=== PATIENT | male | born 1935 ===

== ENCOUNTER 2017-09-21 23:27 | Inpatient (IN) | payer MEDICARE, OTHER ==
--- NOTE | 2017-09-21 23:43 | EDPD ---
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 Relative notes patient has had difficulty talking since his stroke in 05/19 but notes tonight patient was mumbling more so tonight. Patient denies any fever, chills, chest pain, shortness of breath, nausea, vomiting, back pain, neck pain, or any other complaints. 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) Timing: Currently Symptomatic Context: Home Exacerbated by: Nothing Relieved by: Nothing - Location Location: Speech Locate Right: Lower extremity rTPA Inclusion/Exclusion - Refusal of Treatment Patient Refused Treatment: No - Inclusion Criteria for Altepase Patient is 18 years or Older: Yes The Clinical Diagnosis of Ischemic Stroke That is Causing a Potentially Disabling Neurological Deficit: No Time of Onset is Well Established to be Less Than 270 Minute Before Treatment Would Begin: Yes Risk/Benefit Discussed With Patient/Family Member Present: Yes - Exclusion Criteria for Altepase Uncontrolled Hypertension at Time of Treatment (Systolic BP above 185 or Diastolic BP above 110 mmHg): No Active Internal Bleeding: No Known Bleeding Diathesis Including but Not Limited to: Platelets Below 100,000/ mm,PTT Above 40 sec After Heparin Use, Current Use of Oral Anitcoagulant With INR Greater Than 1.7 or PT Greater Than 15 secs: No Evidence of an Intracranial Hemorrhage: No Evidence of Major Acute Infarct With Signs Greater Than 1/3 MCA Territory: No Suspicion of Subarachnoid Hemorrhage on Pretreatment Evaluation Even if CT Head Negative For Hemorrhage: No - Warning to TPA With Conditions Following Conditions Weighed Against Anticipated Benefit: Yes Condition: Stroke Serevity Too Mild Past Medical History - Provider Review Nursing Documentation Reviewed: Yes Family/Social History - Family/Social History Family History: Non-Contributory - Review Nursing documentation reviewed.: Yes Allergies/Home Meds Allergies/Adverse Reactions: Allergies No Known Allergies Allergy (Verified 09/21/17 23:43) Home Medications: Home Meds Medication Instructions Recorded Confirmed Unobtainable 09/22/17 09/22/17 Review of Systems - Physician Review All systems were reviewed & negative as marked: Yes - Review of Systems Constitutional: Normal. absent: Fevers Eyes: Normal ENT: Normal Respiratory: Normal. absent: SOB, Cough Cardiovascular: Normal. absent: Chest Pain Gastrointestinal: Normal. absent: Abdominal Pain, Diarrhea, Nausea, Vomiting Genitourinary Male: Normal. absent: Dysuria, Frequency, Hematuria, Urinary Output Changes Musculoskeletal: Normal. absent: Back Pain, Neck Pain Skin: Normal. absent: Rash Neurological: Speech Changes (+aphasic), Other (+shaking). absent: Dizziness Endocrine: Normal Hemo/Lymphatic: Normal Psychiatric: Normal ED Stroke Physical Exam Vital Signs Reviewed: Yes Temperature: Afebrile Blood Pressure: Normal Pulse: Regular Respiratory Rate: Normal Appearance: Positive for: Non-Toxic, Comfortable Pain Distress: None Mental Status: Positive for: Alert and Oriented X 3 - Systems Exam Head: Present: Atraumatic, Normocephalic Pupils: Present: PERRL Extroacular Muscles: Present: EOMI Conjunctiva: Present: Normal Mouth: Present: Moist Mucous Membranes Neck: Present: Normal Range of Motion. No: Meningeal Signs, MIDLINE TENDERNESS , Paraspinal Tenderness Respiratory/Chest: Present: Clear to Auscultation Cardiovascular: Present: Regular Rate and Rhythm, Normal S1, S2. No: Murmurs Abdomen: Present: Normal Bowel Sounds. No: Tenderness, Distention, Peritoneal Signs Upper Extremity: Present: Normal Inspection, Normal ROM, NORMAL PULSES, Neurovascularly Intact. No: Cyanosis, Edema, Tenderness, Swelling, Erythema, Deformity Lower Extremity: Present: NORMAL PULSES, Normal ROM, Capillary Refill < 2 s, Other (Right lower extremity weakness). No: Edema, Tenderness, Erythema, Deformity, Temperature Abnormalties Neurologic: Present: Normal Sensory Function, Other (Right lower extremity weakness). No: Speech Normal (Aphasic), Pronator Drift, Facial Droop Skin: Present: Warm, Dry, Normal Color. No: Rashes Psychiatric: Present: Alert Medical Decision Making ED Course and Treatment: 09/21/17 23:42 Impression: 82 year old male brought in for shaking and aphasia tonight. Plan: -- CT Head w/o contrast -- EKG -- CXR -- Labs, lipid panel, troponin, blood type and screen -- Reassess and disposition Progress Notes: 09/21/17 23:42 Code Stroke called. Pt taken CT scan. 09/21/17 23:46 Reviewed EKG, junctional rhythm at 64 bpm. Non-specific ST/T wave changes. 09/21/17 23:[address] Sue, neurologist, who is aware and agrees with plan. States to cancel Code Stroke. 09/22/17 00:16 CT Head shows: Brain: There is abnormal hypodensity within the left cerebral peduncle, which is asymmetric and extends into the alfredo. This is concerning for acute or subacute ischemic change/ infarct. Hypodense foci of small vessel skin disease and lacunar infarcts are visualized within the left cerebral white matter. These lacunar infarcts appear chronic. The acuity of the white matter disease is otherwise indeterminate. There is an asymmetric increase in fluid posterior to the cerebellar lobes, left side greater than right. This is consistent with a shannan-cisterna magna variant or arachnoid cyst. The white-uriarte differentiation is otherwise preserved. There is mild to moderate prominence of the ventricles and sulci, compatible with atrophy. No acute intracranial hemorrhage is seen. Midline shift: There is no midline shift. Ventricles: See above. Bones/joints: The calvarium demonstrates no evidence for a depressed fracture. Soft tissues: No acute abnormality. Vasculature: There is atherosclerotic calcification of the cavernous internal carotid arteries and distal vertebral arteries. Sinuses: There is mild mucosal thickening of the bilateral maxillary sinuses. Mastoid air cells: No mastoid effusion. IMPRESSION: 1. There is abnormal hypodensity within the left cerebral peduncle, which is asymmetric and extends into the alfredo. This is concerning for acute or subacute ischemic change/ infarct. An MRI of the brain is recommended, as clinically indicated. 2. Hypodense foci of small vessel skin disease and lacunar infarcts are visualized within the left cerebral white matter. These lacunar infarcts appear chronic. 3. No acute intracranial hemorrhage. 4. Mild to moderate atrophy. 6. Incidental/non-acute findings are described above. 09/22/17 00:25 Chest X-ray reviewed, show no acute processes. 09/22/17 02:35 Case discussed with medical biller/coder claims consultant, who is aware and agrees with plan. 09/22/17 02:[address] Irving, who is aware and agrees with plan. Accepts pt in to hospitalist service. Pt will be admitted to Telemetry for hyponatremia. - Lab Interpretations I have reviewed the lab results: Yes - RAD Interpretation Panel Assembler: ED Physician, Radiologist - EKG Interpretation Interpreted by ED Physician: Yes Type: 12 lead EKG - Scribe Statement The provider has reviewed the documentation as recorded by the Scribe Magda Solomon All medical record entries made by the Scribe were at my direction and personally dictated by me. I have reviewed the chart and agree that the record accurately reflects my personal performance of the history, physical exam, medical decision making, and the department course for this patient. I have also personally directed, reviewed, and agree with the discharge instructions and disposition. NIHSS Scale ([place]) Time Performed: 23:45 - How Severe is the Stoke Baseline Level of Consciousness: 0=Alert LOC to Questions: 0=Both comments correct LOC to commands: 0=Obeys both correctly Best Gaze: 0=Normal Visual: 0=No visual loss Facial: 1=Minor asymmetry Motor Arm - Left: 0=No drift Motor Arm - Right: 0=No drift Motor Leg - Left: 0=No drift Motor Leg - Right: 1=Drift before 5 sec Limb Ataxia: 1=Present Upper or Lower Sensory: 0=Normal Best Language: 2=Severe aphasia Dysarthia: 2=Severe, near unintelligible or worse Extinction & Inattention (Neglect): 0=Normal, no object Score: 7 Risk Level: Mod Stroke Risk Disposition/Present on Arrival - Present on Arrival Any Indicators Present on Arrival: No - Disposition Have Diagnosis and Disposition been Completed?: Yes Diagnosis: Hyponatremia Disposition: HOSPITALIZED Disposition Time: 23:00 Condition: FAIR
--- NOTE | 2017-09-22 00:14 | CT ---
EXAM: CT Head Without Intravenous Contrast EXAM DATE/TIME: 09/21/2017 11:46 PM CLINICAL HISTORY: The patient age is 82 years old and is male; Signs and symptoms; Other: Code stroke Facility exam id and description: Ct headstroke head w/o (code stroke) TECHNIQUE: Axial computed tomography images of the head/brain without intravenous contrast. All CT scans at this facility use one or more dose reduction techniques, viz.: automated exposure control; ma/kV adjustment per patient size (including targeted exams where dose is matched to indication; i.e. head); or iterative reconstruction technique. COMPARISON: No relevant prior studies available. FINDINGS: Brain: There is abnormal hypodensity within the left cerebral peduncle, which is asymmetric and extends into the alfredo. This is concerning for acute or subacute ischemic change/infarct. Hypodense foci of small vessel skin disease and lacunar infarcts are visualized within the left cerebral white matter. These lacunar infarcts appear chronic. The acuity of the white matter disease is otherwise indeterminate. There is an asymmetric increase in fluid posterior to the cerebellar lobes, left side greater than right. This is consistent with a shannan-cisterna magna variant or arachnoid cyst. The white-uriarte differentiation is otherwise preserved. There is mild to moderate prominence of the ventricles and sulci, compatible with atrophy. No acute intracranial hemorrhage is seen. Midline shift: There is no midline shift. Ventricles: See above. Bones/joints: The calvarium demonstrates no evidence for a depressed fracture. Soft tissues: No acute abnormality. Vasculature: There is atherosclerotic calcification of the cavernous internal carotid arteries and distal vertebral arteries. Sinuses: There is mild mucosal thickening of the bilateral maxillary sinuses. Mastoid air cells: No mastoid effusion. IMPRESSION: 1. There is abnormal hypodensity within the left cerebral peduncle, which is asymmetric and extends into the alfredo. This is concerning for acute or subacute ischemic change/infarct. An MRI of the brain is recommended, as clinically indicated. 2. Hypodense foci of small vessel skin disease and lacunar infarcts are visualized within the left cerebral white matter. These lacunar infarcts appear chronic. 3. No acute intracranial hemorrhage. 4. Mild to moderate atrophy. 6. Incidental/non-acute findings are described above.
[2017-09-22 00:42] LABS: BASO # 0.01 K/mm3 (0.0-2.0); BASO % 0.2 % (0.0-3.0); EOS # 0.1 (0.0-0.7); EOS % 1.6 % (1.5-5.0); GRAN # 3.1 (1.4-6.5); GRAN % 61.7 % (50.0-68.0); HEMOGLOBIN 12.2 g/dL (14.0-18.0); LYMPH # 1.4 (1.2-3.4); LYMPH % 27.9 % (22.0-35.0); MEAN CELL VOLUME 89.7 fl (80.0-105.0); MEAN CORPUSCULAR HEMOGLOBIN 31.3 pg (25.0-35.0); MEAN CORPUSCULAR HGB CONC 34.9 g/dl (31.0-37.0); MONO # 0.4 (0.1-0.6); MONO % 8.6 % (1.0-6.0); RBC 3.9 10^6/uL (3.5-6.1); RED CELL DISTRIBUTION WIDTH 13.1 % (11.5-14.5)
[2017-09-22 00:51] LABS: ALB/GLOB RATIO 1.3 (1.1-1.8); ALBUMIN 3.7 g/dL (3.0-4.8); ALT/SGPT 28 U/L (7-56); AST/SGOT 23 U/L (17-59); BLOOD UREA NITROGEN 21 mg/dL (7-21); CALCIUM 8.9 mg/dL (8.4-10.5); GFR AFRICAN-AMERICAN > 60; GFR NON-AFRICAN AMERICAN > 60; HDL CHOLESTEROL 43 mg/dL (29-60)
[2017-09-22 01:00] LABS: INR 1.07 (0.93-1.08); PARTIAL THROMBOPLASTIN TIME 29.5 Seconds (25.1-36.5); PROTHROMBIN TIME 12.2 SECONDS (9.4-12.5)
[2017-09-22 01:04] LABS: LDL CHOLESTEROL < 30 mg/dL (0-129); TROPONIN I < 0.01 ng/mL
[2017-09-22] MEDS: Sodium Chloride 0.9% 1,000 ML IV SCH ×3 (02:06→20:31)
--- NOTE | 2017-09-22 04:50 | CP.PCM.HP ---
<Navneet Vogel - Last Filed: 09/22/17 07:24> History of Present Illness - History of Present Illness History of Present Illness: Chief Complaint: aphasia and tremors in upper and lower extremities bilaterally HPI: Patient is an 82 year old male past medical history significant for CVA 2016 which resulted in right sided deficit and aphasia presenting to [facility] on with complaints of increased aphasia and tremors or upper and lower extremities. As per patient's grand daughter, around 10 p.m. family noted patient was having difficulties communicating which were similar to his previous stroke. Patient was also noted to have a new onset of tremors in face, upper and lower extremities bilaterally. Denies fevers, chills, body aches, headache, abdominal pain, chest pain, shortness of breath. PMD: Dr. Eddy Past medical history: CVA Past surgical history: denies Social history: denies tobacco use, alcohol consumption, illicit drug use Allergies: denies Family history: non-contributory Labs-WBC 5.0, H&H 12.2/35, Sodium 124, Potassium 4.3, Chloride 90, Bicarbonate 25, BUN 21, Creatinine 1.0, Glucose 118, AST 23, ALT 28, Troponin 0.01, Triglycerides 51, Cholesterol 90, LDL <30, HDL 43 CT head-There is abnormal hypodensity within the left cerebral peduncle, which is asymmetric and extends into the alfredo. This is concerning for acute or subacute ischemic change/infarct. Hypodense foci of small vessel ischemic disease and lacunar infarcts are visualized within the left cerebral white matter. These lacunar infarcts appear chronic. The acuity of the white matter disease is otherwise indeterminate. There is an asymmetric increase in fluid posterior to the cerebellar lobes, left side greater than right. This is consistent with a shannan-cisterna magna variant or arachnoid cyst. The white-uriarte differentiation is otherwise preserved. There is mild to moderate prominence of the ventricles and sulci, compatible with atrophy. No acute intracranial hemorrhage is seen. Present on Admission - Present on Admission Any Indicators Present on Admission: No Review of Systems - Constitutional Constitutional: absent: Chills, Fever - Cardiovascular Cardiovascular: absent: Chest Pain, Dyspnea - Respiratory Respiratory: absent: Cough, Dyspnea - Gastrointestinal Gastrointestinal: absent: Abdominal Pain, Diarrhea, Nausea, Vomiting - Psychiatric Psychiatric: Anxiety Past Patient History - Past Social History Smoking Status: no - NEUROLOGICAL HX Cerebrovascular Accident: Yes - PSYCHIATRIC Hx Substance Use: No Meds Allergies/Adverse Reactions: Allergies Allergy/AdvReac Type Severity Reaction Status Date / Time No Known Allergies Allergy Verified 09/21/17 23:43 Physical Exam - Head Exam Head Exam: ATRAUMATIC, NORMAL INSPECTION, NORMOCEPHALIC - Eye Exam Eye Exam: EOMI, Normal appearance - ENT Exam ENT Exam: Mucous Membranes Dry - Neck Exam Neck exam: Positive for: Normal Inspection - Respiratory Exam Respiratory Exam: Clear to Auscultation Bilateral, NORMAL BREATHING PATTERN. absent: Rhonchi, Wheezes - Cardiovascular Exam Cardiovascular Exam: REGULAR RHYTHM, +S1, +S2 - GI/Abdominal Exam GI & Abdominal Exam: Normal Bowel Sounds, Soft - Neurological Exam Neurological exam: Alert, Motor Sensory Deficit (left side 4/5, right side 1/5) , Oriented x3 Additional comments: aphasia, right sided deficits s/p CVA 05/2017 - Skin Skin Exam: Intact, Normal Color, Warm Results - Vital Signs Recent Vital Signs: Last Vital Signs Temp 97.5 F L 09/21/17 23:43 Pulse 65 09/21/17 23:43 Resp 18 09/21/17 23:43 BP 137/70 09/21/17 23:43 Pulse Ox 99 09/21/17 23:43 - Labs Result Diagrams: 09/22/17 05:05 09/22/17 05:05 Assessment & Plan - Assessment and Plan (Free Text) Assessment: Patient is an 82 year old male past medical history significant for CVA 05/2017 which resulted in right sided deficit and aphasia presenting to [facility] on with complaints of increased aphasia and tremors or upper and lower extremities. Plan: Worsened aphasia and new onset tremors -CT head;concerning for acute or subacute ischemic change/infarct. Hypodense foci of small vessel ischemic disease and lacunar infarcts are visualized within the left cerebral white matter. These lacunar infarcts appear chronic. -MRI brain ordered; results pending -Neurology consulted; recommendations appreciated -Fasting lipid panel, TSH ordered, HgA1C; results pending -Fall, aspiration, seizure precautions, head above bed 45 degrees -Neuro check q4H -Speech and Swallow screening -PT/OT History of CVA -Continue home medications; verify with pharmacy: [facility] [address], [place] -Plavix,Donepezil, Amlodipine, Tamsulosin, Atorvastatin Hyponatremia -IVF@80 from ED; can increase pending sodium correction -Serum osmolality, Urine osmolality, random urine sodium; results pending DVT/GI prophylaxis: SCDs/Protonix <Maria Fernanda HICKEY,Reagan - Last Filed: 09/22/17 07:34> Results - Vital Signs Recent Vital Signs: Last Vital Signs Temp 98.4 F 09/22/17 04:05 Pulse 76 09/22/17 07:14 Resp 18 09/22/17 07:14 BP 139/76 09/22/17 07:14 Pulse Ox 99 09/22/17 07:14 - Labs Result Diagrams: 09/22/17 05:05 09/22/17 05:05 Labs: Laboratory Results - last 24 hr 09/22/17 09/22/17 09/22/17 05:05 05:05 05:05 WBC 5.8 RBC 4.16 Hgb 13.0 L Hct 37.0 L MCV 88.9 MCH 31.3 MCHC 35.1 RDW 12.9 Plt Count 211 MPV 10.1 Gran % 59.2 Lymph % (Auto) 30.7 [place] % (Auto) 8.0 H Eos % (Auto) 1.9 Baso % (Auto) 0.2 Gran # 3.41 Lymph # 1.8 [place] # 0.5 Eos # 0.1 Baso # 0.01 PT 11.7 INR 1.02 APTT 29.4 Sodium 128 L Potassium 4.1 Chloride 94 L Carbon Dioxide 26 Anion Gap 13 BUN 17 Creatinine 0.8 Est GFR ( Amer) > 60 Est GFR (Non-Af Amer) > 60 Random Glucose 91 Calcium 9.2 Phosphorus 3.5 Magnesium 1.8 Total Bilirubin 0.5 AST 22 ALT 30 Alkaline Phosphatase 78 Total Protein 6.8 Albumin 3.8 Globulin 3.0 Albumin/Globulin Ratio 1.3 Attending/Attestation - Attestation I have personally seen and examined this patient.: Yes I have fully participated in the care of the patient.: Yes I have reviewed all pertinent clinical information: Yes Notes (Text): -I agree with the above H&P completed by the resident physician with the following additions and/or changes: -The patient is an 82 year old man with a history of CVA in May 2017 ( with residual right-sided weakness and aphasia), who presents with worsening aphasia and intermittent bilateral upper extremity tremors. The patient was deemed by neurology not to be a t-PA candidate. CT-head was negative for bleed but shows possible area of acute vs subacute ischemia. Therefore, the patient will be admitted to telemetry ferm[place] with neuro checks 4hours, HOB>30 degrees and fall, seizure and aspiration precautions. Of note, the neurological exam was limited because patient is altered and unable to follow commands. Details of history were sought from his granddaughter (at bedside). He will be placed on ASA and Lipitor (to be given per rectum, as patient will be NPO). Neurology has been consulted. Also, a brain MRI, HgA1c, lipid panel and TSH have all been ordered. Of note, he was also noted to have mild/moderate hyponatremia (124) which is likely due to dehydration. He will therefore be placed on gently NS IVF 's with BMP checks Q4hrs (to ensure that serum sodium doesn't rise too rapidly) .
[2017-09-22 05:54] LABS: BASO # 0.01 K/mm3 (0.0-2.0); BASO % 0.2 % (0.0-3.0); EOS # 0.1 (0.0-0.7); EOS % 1.9 % (1.5-5.0); GRAN # 3.41 (1.4-6.5); GRAN % 59.2 % (50.0-68.0); LYMPH # 1.8 (1.2-3.4); LYMPH % 30.7 % (22.0-35.0); MEAN CELL VOLUME 88.9 fl (80.0-105.0); MEAN CORPUSCULAR HEMOGLOBIN 31.3 pg (25.0-35.0); MEAN CORPUSCULAR HGB CONC 35.1 g/dl (31.0-37.0); MEAN PLATELET VOLUME 10.1 fl (7.0-11.0); MONO # 0.5 (0.1-0.6); RBC 4.16 10^6/uL (3.5-6.1); RED CELL DISTRIBUTION WIDTH 12.9 % (11.5-14.5); WHITE BLOOD COUNT 5.8 10^3/ul (4.5-11.0)
[2017-09-22 06:09] LABS: ALB/GLOB RATIO 1.3 (1.1-1.8); ALBUMIN 3.8 g/dL (3.0-4.8); ALT/SGPT 30 U/L (7-56); AST/SGOT 22 U/L (17-59); BLOOD UREA NITROGEN 17 mg/dL (7-21); CALCIUM 9.2 mg/dL (8.4-10.5); GFR AFRICAN-AMERICAN > 60; GFR NON-AFRICAN AMERICAN > 60; MAGNESIUM 1.8 mg/dL (1.7-2.2)
[2017-09-22 06:21] LABS: INR 1.02 (0.93-1.08); PARTIAL THROMBOPLASTIN TIME 29.4 Seconds (25.1-36.5); PROTHROMBIN TIME 11.7 SECONDS (9.4-12.5)
[2017-09-22 08:02] LABS: BLOOD UREA NITROGEN 15 mg/dL (7-21); CALCIUM 9.1 mg/dL (8.4-10.5); GFR AFRICAN-AMERICAN > 60; GFR NON-AFRICAN AMERICAN > 60
--- NOTE | 2017-09-22 09:52 | RAD ---
HISTORY: cva COMPARISON: None available. TECHNIQUE: Chest, one view. FINDINGS: Examination limited by habitus. LUNGS: Mild pulmonary venous congestion. Please note that chest x-ray has limited sensitivity for the detection of pulmonary masses. PLEURA: No significant pleural effusion identified. No definite pneumothorax . CARDIOVASCULAR: Heart size appears within normal limits. Prominence of the mediastinum appears related to ectatic aorta. Atherosclerotic calcifications of the aorta. Right hilar prominence. OSSEOUS STRUCTURES: Degenerative changes of the spine. VISUALIZED UPPER ABDOMEN: Unremarkable. OTHER FINDINGS: Radiopaque rectangular device projects over the left mid chest. IMPRESSION: Mild pulmonary venous congestion. Prominence of the mediastinum appears related to ectatic aorta. Atherosclerotic calcifications. Right hilar prominence.
--- NOTE | 2017-09-22 10:13 | CARD ---
APPROVED REPORT EKG Measurement Heart [id number] <Conclusion> RSR RVCD Artifact present.
[2017-09-22 13:32] LABS: BLOOD UREA NITROGEN 12 mg/dL (7-21); CALCIUM 9.1 mg/dL (8.4-10.5); GFR AFRICAN-AMERICAN > 60; GFR NON-AFRICAN AMERICAN > 60
--- NOTE | 2017-09-22 13:38 | MRI ---
PROCEDURE: MRI BRAIN WITHOUT CONTRAST HISTORY: r/o stroke COMPARISON: Unenhanced head CT TECHNIQUE: Multiplanar, multisequence MR images of the brain were obtained without intravenous contrast enhancement. FINDINGS: HEMORRHAGE: None DWI: No definite pattern to suggest acute or subacute brain infarction. BRAIN PARENCHYMA: Subcortical and deep white matter cystic encephalomalacia is appreciated at the left parietal and frontal lobes are identified from prior insult but appears to spare the uriarte matter which may reflect demyelination trauma or potentially post ischemic change. Corpus callosum signal appears within normal limits mandible area in degeneration extends through the cortical spinal tracts into the left cerebral peduncle accounting for the CT findings described in the final report from CT of the head 09/21/2017. No mass-effect is identified and there is no suspicious extra-axial collection either. Posterior fossa contents appear unremarkable including the brainstem. Diffuse cerebral atrophy chronic microangiopathy are reiterated. VENTRICLES: Unremarkable. No hydrocephalus. CRANIUM: Unremarkable. ORBITS: Grossly unremarkable. PARANASAL SINUSES/MASTOIDS: Multiple ethmoid sinus disease is mild, bilateral. VASCULAR SYSTEM: Skull base flow voids intact. OTHER FINDINGS: None. IMPRESSION: No definitive acute separate brain infarction is appreciated this time with age related neuro degenerative changes with the reiterated. 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 This is a chronic finding though not specifically post ischemic though there is including the very diagnosis was discussed above. If further brain imaging is required, consider follow-up contrast MRI.
[2017-09-22 13:41] VITALS: BMI 19.5
[2017-09-22 13:44] LABS: TROPONIN I < 0.01 ng/mL
--- NOTE | 2017-09-22 14:02 | MRI ---
PROCEDURE: MR Angiography of the neck without contrast HISTORY: r/o stroke COMPARISON: None available. TECHNIQUE: 3D [id number] angiography of the neck was performed. Rotating maximum intensity projection images of the cervical carotid and vertebral arteries were generated. The origins of the common carotid arteries were not visualized, which is a limitation inherent to the non-contrast time of flight technique. FINDINGS: RIGHT CAROTID ARTERIES: Common Carotid Artery: No prominent stenosis identified. Carotid Bifurcation: Patent Internal Carotid Artery:No significant stenosis identified. External Carotid Artery (proximal branches): Proximal moderate stenosis is questioned. LEFT CAROTID ARTERIES: Common Carotid Artery: No prominent stenosis identified. Carotid Bifurcation: Patent Internal Carotid Artery:No significant stenosis identified. External Carotid Artery (proximal branches): Normal. VERTEBRAL ARTERIES: Right Vertebral Artery: Ectatic but patent without visualized significant stenosis evident. Left Vertebral Artery: Ectatic but patent without visualized significant stenosis evident. OTHER FINDINGS: None. IMPRESSION: No definite significant stenosis appreciated involving the visualized bilateral common and internal carotid segments in the neck.
--- NOTE | 2017-09-22 15:27 | MRI ---
EXAM: MR Angiography Head Without Intravenous Contrast CLINICAL HISTORY: 82 years old, male; Signs and symptoms; Syncope and collapse; Additional info: R/O stroke TECHNIQUE: Magnetic resonance angiography images of the head without intravenous contrast. COMPARISON: CT - HEAD W/O (CODE STROKE) 2017-09-21 23:53 FINDINGS: Right internal carotid artery: No acute findings. Intracranial segment is patent with no significant stenosis. No aneurysm. Right anterior cerebral artery: Unremarkable. No occlusion or significant stenosis. No aneurysm. Right middle cerebral artery: Unremarkable. No occlusion or significant stenosis. No aneurysm. Right posterior cerebral artery: Unremarkable. No occlusion or significant stenosis. No aneurysm. Right vertebral artery: Unremarkable as visualized. Left internal carotid artery: No acute findings. Intracranial segment is patent with no significant stenosis. No aneurysm. Left anterior cerebral artery: Unremarkable. No occlusion or significant stenosis. No aneurysm. Left middle cerebral artery: There is decreased flow signal within the left middle cerebral artery consistent with slow flow or occlusion. There is a paucity of distal left middle cerebral artery branches. Please correlate with any right sided neurological deficits. No aneurysm. Left posterior cerebral artery: Unremarkable. No occlusion or significant stenosis. No aneurysm. Left vertebral artery: Unremarkable as visualized. Basilar artery: Unremarkable. No occlusion or significant stenosis. No aneurysm. IMPRESSION: There is decreased flow signal within the left middle cerebral artery consistent with slow flow or occlusion. There is a paucity of distal left middle cerebral artery branches. Please correlate with any right sided neurological deficits.
[2017-09-22 17:50] LABS: BLOOD UREA NITROGEN 12 mg/dL (7-21); CALCIUM 9.1 mg/dL (8.4-10.5); GFR AFRICAN-AMERICAN > 60; GFR NON-AFRICAN AMERICAN > 60
--- NOTE | 2017-09-22 20:13 | CP.PCM.CON ---
History of Present Illness - History of Present Illness History of Present Illness: Mr. 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 MRI of the brain was done today and did not show an acute infarct; however, the left MCA did have decreased flow consistent with fluctuating symptoms and the previous left MCA ischemic stroke. When I saw the patient, he followed commands, moved all his extremities with pronator drift on the right, sensory deficits on the right and expressive aphasia. NIHSS = 7. He was not a tPA candidate since his symptoms started last night and he is fluctuating. MRI of the brain did not show an acute stroke. Review of Systems - Review of Systems All systems: reviewed and no additional remarkable complaints except Past Patient History - Past Social History Smoking Status: Never Smoked - NEUROLOGICAL HX Cerebrovascular Accident: Yes (R soided weakness) - MUSCULOSKELETAL/RHEUMATOLOGICAL Hx Falls: No - PSYCHIATRIC Hx Substance Use: No Meds Allergies/Adverse Reactions: Allergies Allergy/AdvReac Type Severity Reaction Status Date / Time No Known Allergies Allergy Verified 09/21/17 23:43 - Medications Medications: Current Medications Atorvastatin Calcium (Lipitor) 40 mg PO DIN [facility] Last Admin: 09/22/17 17:10 Dose: Not Given Sodium Chloride (Sodium Chloride 0.9%) 1,000 mls @ 80 mls/hr IV .[id number] [facility] Last Admin: 09/22/17 16:15 Dose: 80 mls/hr Pantoprazole Sodium (Protonix Inj) 40 mg IVP DAILY [facility] Last Admin: 09/22/17 16:15 Dose: 40 mg Physical Exam - Constitutional Appears: Non-toxic, Cachectic - Head Exam Head Exam: ATRAUMATIC, NORMAL INSPECTION, NORMOCEPHALIC - Eye Exam Eye Exam: EOMI, Normal appearance, PERRL - ENT Exam ENT Exam: Mucous Membranes Moist, Normal Exam - Neck Exam Neck exam: Positive for: Normal Inspection - Respiratory Exam Respiratory Exam: Clear to Auscultation Bilateral, NORMAL BREATHING PATTERN - Cardiovascular Exam Cardiovascular Exam: REGULAR RHYTHM, +S1, +S2 - GI/Abdominal Exam GI & Abdominal Exam: Normal Bowel Sounds, Soft. absent: Tenderness - Rectal Exam Rectal Exam: Deferred - Extremities Exam Extremities exam: Positive for: normal inspection - Neurological Exam Neurological exam: Abnormal Gait, Alert, CN II-XII Intact, Oriented x3 Additional comments: Right side pronator drift/weakness, right side decreased sensation to LT/P, brisk reflexes on the right with upgoing plantar response. Productive aphasia, with intact comprehension. Gait was not assessed. NIHSS = 7. Results - Vital Signs Recent Vital Signs: Last Vital Signs Temp 98 F 09/22/17 19:00 Pulse 76 09/22/17 19:00 Resp 19 09/22/17 19:00 BP 123/62 09/22/17 19:00 Pulse Ox 98 09/22/17 19:00 - Labs Result Diagrams: 09/22/17 05:05 09/22/17 17:30 Labs: Laboratory Results - last 24 hr 09/22/17 09/22/17 09/22/17 05:05 05:05 05:05 WBC 5.8 RBC 4.16 Hgb 13.0 L Hct 37.0 L MCV 88.9 MCH 31.3 MCHC 35.1 RDW 12.9 Plt Count 211 MPV 10.1 Gran % 59.2 Lymph % (Auto) 30.7 Atlantic % (Auto) 8.0 H Eos % (Auto) 1.9 Baso % (Auto) 0.2 Gran # 3.41 Lymph # 1.8 Atlantic # 0.5 Eos # 0.1 Baso # 0.01 ESR PT INR APTT Sodium 128 L Potassium 4.1 Chloride 94 L Carbon Dioxide 26 Anion Gap 13 BUN 17 Creatinine 0.8 Est GFR ( Amer) > 60 Est GFR (Non-Af Amer) > 60 POC Glucose (mg/dL) Random Glucose 91 Serum Osmolality Calcium 9.2 Phosphorus 3.5 Magnesium 1.8 Total Bilirubin 0.5 AST 22 ALT 30 Alkaline Phosphatase 78 Troponin I C-React Prot High Sens Total Protein 6.8 Albumin 3.8 Globulin 3.0 Albumin/Globulin Ratio 1.3 Vitamin B12 25-OH Vitamin D Total TSH 3rd Generation 2.33 09/22/17 09/22/17 09/22/17 05:05 05:05 07:44 WBC RBC Hgb Hct MCV MCH MCHC RDW Plt Count MPV Gran % Lymph % (Auto) Atlantic % (Auto) Eos % (Auto) Baso % (Auto) Gran # Lymph # Atlantic # Eos # Baso # ESR PT 11.7 INR 1.02 APTT 29.4 Sodium Potassium Chloride Carbon Dioxide Anion Gap BUN Creatinine Est GFR ( Amer) Est GFR (Non-Af Amer) POC Glucose (mg/dL) 85 Random Glucose Serum Osmolality 264 L Calcium Phosphorus Magnesium Total Bilirubin AST ALT Alkaline Phosphatase Troponin I C-React Prot High Sens Total Protein Albumin Globulin Albumin/Globulin Ratio Vitamin B12 25-OH Vitamin D Total TSH 3rd Generation 09/22/17 09/22/17 09/22/17 07:45 12:50 12:54 WBC RBC Hgb Hct MCV MCH MCHC RDW Plt Count MPV Gran % Lymph % (Auto) Atlantic % (Auto) Eos % (Auto) Baso % (Auto) Gran # Lymph # Atlantic # Eos # Baso # ESR PT INR APTT Sodium 130 L 131 L Potassium 4.1 4.1 Chloride 96 L 97 L Carbon Dioxide 25 24 Anion Gap 13 14 BUN 15 12 Creatinine 0.8 0.7 L Est GFR ( Amer) > 60 > 60 Est GFR (Non-Af Amer) > 60 > 60 POC Glucose (mg/dL) Random Glucose 97 96 Serum Osmolality Calcium 9.1 9.1 Phosphorus Magnesium Total Bilirubin AST ALT Alkaline Phosphatase Troponin I < 0.01 C-React Prot High Sens Total Protein Albumin Globulin Albumin/Globulin Ratio Vitamin B12 368 25-OH Vitamin D Total 49.7 TSH 3rd Generation 09/22/17 09/22/17 09/22/17 12:54 13:00 17:30 WBC RBC Hgb Hct MCV MCH MCHC RDW Plt Count MPV Gran % Lymph % (Auto) Atlantic % (Auto) Eos % (Auto) Baso % (Auto) Gran # Lymph # Atlantic # Eos # Baso # ESR 10 PT INR APTT Sodium 129 L Potassium 4.2 Chloride 98 Carbon Dioxide 23 Anion Gap 13 BUN 12 Creatinine 0.7 L Est GFR ( Amer) > 60 Est GFR (Non-Af Amer) > 60 POC Glucose (mg/dL) Random Glucose 104 Serum Osmolality Calcium 9.1 Phosphorus Magnesium Total Bilirubin AST ALT Alkaline Phosphatase Troponin I C-React Prot High Sens 0.53 L Total Protein Albumin Globulin Albumin/Globulin Ratio Vitamin B12 25-OH Vitamin D Total TSH 3rd Generation 09/22/17 17:30 WBC RBC Hgb Hct MCV MCH MCHC RDW Plt Count MPV Gran % Lymph % (Auto) Atlantic % (Auto) Eos % (Auto) Baso % (Auto) Gran # Lymph # Atlantic # Eos # Baso # ESR PT INR APTT Sodium Potassium Chloride Carbon Dioxide Anion Gap BUN Creatinine Est GFR ( Amer) Est GFR (Non-Af Amer) POC Glucose (mg/dL) Random Glucose Serum Osmolality Calcium Phosphorus Magnesium Total Bilirubin AST ALT Alkaline Phosphatase Troponin I < 0.01 C-React Prot High Sens Total Protein Albumin Globulin Albumin/Globulin Ratio Vitamin B12 25-OH Vitamin D Total TSH 3rd Generation Assessment & Plan (1) TIA (transient ischemic attack) Assessment and Plan: This is likely due to the compromised circulation and stenotic left MCA. I recommend the followin. Telemetry and Q2 hour neuro-checks 2. Echocardiogram with bubble study 3. Load with Plavix 300 mg and Aspirin 325 and continue Plavix 75 mg daily and aspirin 81 mg daily for intracranial atherosclerotic disease 4. LDL is less than 30, may hold statin for now 5. PT/OT eval and treatment 6. DVT Px 7. Case management consult Thank you. Status: Acute Priority: High
[2017-09-22 20:29] LABS: BLOOD UREA NITROGEN 11 mg/dL (7-21); CALCIUM 9.2 mg/dL (8.4-10.5); GFR AFRICAN-AMERICAN > 60; GFR NON-AFRICAN AMERICAN > 60
[2017-09-23] MEDS: Sodium Chloride 0.9% 1,000 ML IV SCH ×5 (02:00→14:32)
[2017-09-23 07:13] LABS: BASO # 0.02 K/mm3 (0.0-2.0); BASO % 0.5 % (0.0-3.0); EOS # 0.1 (0.0-0.7); EOS % 3.6 % (1.5-5.0); GRAN # 2.18 (1.4-6.5); GRAN % 55.3 % (50.0-68.0); HEMOGLOBIN 12.1 g/dL (14.0-18.0); LYMPH # 1.3 (1.2-3.4); LYMPH % 32.7 % (22.0-35.0); MEAN CELL VOLUME 89.4 fl (80.0-105.0); MEAN CORPUSCULAR HEMOGLOBIN 30.4 pg (25.0-35.0); MEAN PLATELET VOLUME 9.8 fl (7.0-11.0); MONO # 0.3 (0.1-0.6); MONO % 7.9 % (1.0-6.0); RBC 3.98 10^6/uL (3.5-6.1); RED CELL DISTRIBUTION WIDTH 13.1 % (11.5-14.5); WHITE BLOOD COUNT 3.9 10^3/ul (4.5-11.0)
[2017-09-23 07:31] LABS: ALB/GLOB RATIO 1.1 (1.1-1.8); ALBUMIN 3.2 g/dL (3.0-4.8); ALT/SGPT 30 U/L (7-56); AST/SGOT 24 U/L (17-59); BLOOD UREA NITROGEN 10 mg/dL (7-21); GFR AFRICAN-AMERICAN > 60; GFR NON-AFRICAN AMERICAN > 60; HDL CHOLESTEROL 38 mg/dL (29-60)
[2017-09-23 07:42] LABS: LDL CHOLESTEROL 33 mg/dL (0-129)
--- NOTE | 2017-09-23 09:03 | CP.PCM.PN ---
Subjective - Date & Time of Evaluation Date of Evaluation: 09/23/17 Time of Evaluation: 08:59 - Subjective Subjective: Mr. Dunn was seen and examined at the bedside. He is alert, oriented with more clear speech in comparison from yesterday. He is denies any headache, dizziness , lightheadedness, nausea, or vomiting. He is able to follow simple commands with right arm pronator drift. MRI of the brain did not show any acute findings , MRA of the head showed decreased flow signal within the left MCA. There is a paucity of the distal left MCA.There was no untoward events overnight. Objective - Vital Signs/Intake and Output Vital Signs (last 24 hours): Temp Pulse Resp BP Pulse Ox 98.0 F 53 L 20 131/69 96 09/23/17 06:00 09/23/17 06:00 09/23/17 06:00 09/23/17 06:00 09/23/17 06:00 Intake and Output: 09/23/17 09/23/17 06:59 18:59 Intake Total 1440 Output Total 700 Balance 740 - Medications Medications: Current Medications Aspirin (Ecotrin) 81 mg PO DAILY [facility] Atorvastatin Calcium (Lipitor) 40 mg PO DIN [facility] Last Admin: 09/22/17 17:10 Dose: Not Given Clopidogrel Bisulfate (Plavix) 75 mg PO DAILY [facility] Sodium Chloride (Sodium Chloride 0.9%) 1,000 mls @ 80 mls/hr IV .[id number] [facility] Last Admin: 09/23/17 02:00 Dose: Not Given Sodium Chloride (Sodium Chloride 0.9%) 1,000 mls @ 120 mls/hr IV .[id number] [facility] Last Admin: 09/23/17 04:56 Dose: 120 mls/hr Pantoprazole Sodium (Protonix Inj) 40 mg IVP DAILY [facility] Last Admin: 09/22/17 16:15 Dose: 40 mg - Labs Labs: 09/23/17 06:00 09/23/17 06:00 PT 11.7 SECONDS (9.4-12.5) 09/22/17 05:05 INR 1.02 (0.93-1.08) 09/22/17 05:05 APTT 29.4 Seconds (25.1-36.5) 09/22/17 05:05 - Constitutional Appears: No Acute Distress - Head Exam Head Exam: NORMAL INSPECTION - Neurological Exam Neurological Exam: Alert, Awake Neuro motor strength exam: Left Upper Extremity: 5, Right Upper Extremity: 4, Left Lower Extremity: 5, Right Lower Extremity: 4 Additional comments: Right side pronator drift/weakness, right side decreased sensation to LT/P, brisk reflexes on the right with upgoing plantar response. Assessment and Plan (1) TIA (transient ischemic attack) Assessment & Plan: Case discussed with Dr. Sue, continue all current medical regimen including dual anti-platelet and statin. Recommend physical, occupational, and speech therapies. Pending echocardiogram Status: Acute
--- NOTE | 2017-09-23 15:03 | CP.PCM.PN ---
<MarvinDaviddeo - Last Filed: 09/23/17 14:57> Subjective - Date & Time of Evaluation Date of Evaluation: 09/23/17 Time of Evaluation: 07:30 - Subjective Subjective: Lorena Wong DO PGY1 - IM Progress Note Patient seen and examined at bedside. Patient appears much more alert than on admission. No longer tremulous. Patient is complaining of numbness in bilateral thighs and restless legs at night making it difficult for him to sleep; this started on and is improving spontaneously. He denies any headache, confusion, chest pain, shortness of breath. Objective - Vital Signs/Intake and Output Vital Signs (last 24 hours): Temp Pulse Resp BP Pulse Ox 97.6 F 61 18 128/66 96 09/23/17 12:00 09/23/17 14:00 09/23/17 12:00 09/23/17 12:00 09/23/17 12:00 Intake and Output: 09/23/17 09/23/17 06:59 18:59 Intake Total 1440 360 Output Total 700 250 Balance 740 110 - Medications Medications: Current Medications Aspirin (Ecotrin) 81 mg PO DAILY [facility] Last Admin: 09/23/17 09:57 Dose: 81 mg Atorvastatin Calcium (Lipitor) 40 mg PO DIN [facility] Last Admin: 09/22/17 17:10 Dose: Not Given Clopidogrel Bisulfate (Plavix) 75 mg PO DAILY [facility] Last Admin: 09/23/17 09:57 Dose: 75 mg Donepezil HCl (Aricept) 5 mg PO DAILY [facility] Last Admin: 09/23/17 14:19 Dose: 5 mg Sodium Chloride (Sodium Chloride 0.9%) 1,000 mls @ 120 mls/hr IV .[id number] [facility] Last Admin: 09/23/17 14:19 Dose: 120 mls/hr Pantoprazole Sodium (Protonix Inj) 40 mg IVP DAILY [facility] Last Admin: 09/23/17 09:57 Dose: 40 mg Tamsulosin HCl (Flomax) 0.8 mg PO DAILY [facility] Last Admin: 09/23/17 14:19 Dose: 0.8 mg - Labs Labs: 09/23/17 06:00 09/23/17 06:00 PT 11.7 SECONDS (9.4-12.5) 09/22/17 05:05 INR 1.02 (0.93-1.08) 09/22/17 05:05 APTT 29.4 Seconds (25.1-36.5) 09/22/17 05:05 - Constitutional Appears: Non-toxic, No Acute Distress, Chronically Ill - Head Exam Head Exam: ATRAUMATIC, NORMOCEPHALIC - Eye Exam Eye Exam: EOMI, Normal appearance, PERRL - ENT Exam ENT Exam: Mucous Membranes Moist - Neck Exam Neck Exam: Normal Inspection - Respiratory Exam Respiratory Exam: Clear to Ausculation Bilateral, NORMAL BREATHING PATTERN - Cardiovascular Exam Cardiovascular Exam: RRR, +S1, +S2 - GI/Abdominal Exam GI & Abdominal Exam: Soft, Normal Bowel Sounds. absent: Tenderness - Extremities Exam Extremities Exam: absent: Calf Tenderness, Pedal Edema - Neurological Exam Neurological Exam: Alert, Awake, Oriented x3 Neuro motor strength exam: Left Upper Extremity: 5, Right Upper Extremity: 4, Left Lower Extremity: 5, Right Lower Extremity: 4 Additional comments: Aphasic No tremor - Psychiatric Exam Psychiatric exam: Normal Affect, Normal Mood - Skin Skin Exam: Dry, Intact Assessment and Plan - Assessment and Plan (Free Text) Assessment: Patient is an 82 year old male past medical history significant for CVA 05/2017 which resulted in right sided deficit and aphasia presenting to [facility] on with complaints of increased aphasia and tremors or upper and lower extremities. Plan: Worsened aphasia and new onset tremors -CT head; concerning for acute or subacute ischemic change/infarct. -MRI of the brain did not show any acute findings, MRA of the head showed decreased flow signal within the left MCA. There is a paucity of the distal left MCA -Prothrombin gene assay and echo with bubble study ordered per neuro -Loading doses given of ASA and Plavix; continue daily ASA and Plavix -Patient was reportedly on Plavix at home, but not ASA, which was discontinued some time after the first stroke in 05/2017 -EKG shows NSR -Fasting lipid panel wnl, TSH wnl, HgA1C wnl -Fall, aspiration, seizure precautions, head above bed 45 degrees -Neuro check q4H -PT/OT/ST -Neurology consulted; recommendations appreciated Hyponatremia -Improving -IVF NS@120 -Serum osmolality, Urine osmolality, random urine sodium; results pending h/o CVA with residual deficits - Patient reportedly on Plavix and Statin at home - Resume home medications h/o BPH - Continue flomax Dementia - Continue donepezil ?h/o Arrythmia - Patient has loop recorder in heart to monitor for arrhythmia, per daughter - Patient has been NSR since admission - Requested cardio consult; appreciate recs DVT/GI prophylaxis: SCDs/Protonix Patient seen, discussed, and reviewed with attending Dr. Nolan <Rafia Nolan - Last Filed: 09/25/17 16:43> Objective - Vital Signs/Intake and Output Vital Signs (last 24 hours): Temp Pulse Resp BP Pulse Ox 97.7 F 55 L 18 134/72 98 09/24/17 12:00 09/24/17 14:00 09/24/17 12:00 09/24/17 12:00 09/24/17 12:00 - Labs Labs: 09/24/17 06:30 09/24/17 06:30 PT 11.7 SECONDS (9.4-12.5) 09/22/17 05:05 INR 1.02 (0.93-1.08) 09/22/17 05:05 APTT 29.4 Seconds (25.1-36.5) 09/22/17 05:05 Attending/Attestation - Attestation I have personally seen and examined this patient.: Yes I have fully participated in the care of the patient.: Yes I have reviewed all pertinent clinical information, including history, physical exam and plan: Yes Notes (Text): I have seen and examined the patient at bedside. 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 CT head revealed acute vs subacute infarct. MRI brain normal however MRA revealed Left MCA low signal. Neurologist and neurointervention on board. He was started on dual antiplatelet regimen aspirin and plavix. Continue lipitor. Awaiting further recommendations from Dr Cruz. Hyponatremia is improving. Discussed case with pmd as well. 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 Upon discharge patient will follow up with Dr Barrientos. Dr Rafia Nolan
--- NOTE | 2017-09-23 15:18 | US ---
PROCEDURE: Bilateral carotid artery duplex ultrasound HISTORY: Carotid stenosis CVA PHYSICIAN(S): Jonathan Melendez MD. TECHNIQUE: Duplex sonography and color-flow Doppler were used to evaluate the carotid bifurcations and limited segments of the vertebral arteries bilaterally. The exam is limited by tortuous vessels. FINDINGS: There is mild diffuse smooth heterogeneous plaque noted at the carotid bifurcations bilaterally. The peak systolic velocity in the proximal right internal carotid artery is 86 cm/sec. This corresponds to a 20 to 39% proximal right ICA stenosis. Normal systolic velocities are noted in the proximal right external carotid artery. There is antegrade flow in the right vertebral artery. The peak systolic velocity in the proximal left internal carotid artery is 68 cm/sec. This corresponds to a 20 to 39% proximal left ICA stenosis. Normal systolic velocities are noted in the proximal left external carotid artery. There is antegrade flow in the left vertebral artery. IMPRESSION: 1. Bilateral 20-39% proximal ICA stenoses. 2. Antegrade flow in both vertebral arteries.
--- NOTE | 2017-09-23 16:18 | CARD ---
APPROVED REPORT EXAM: Two-dimensional and M-mode echocardiogram with Doppler and color Doppler. INDICATION 2D DIMENSIONS IVSd1.2 (0.7-1.1cm)LVDd4.2 (3.9-5.9cm) PWd1.1 (0.7-1.1cm)LVDs2.8 (2.5-4.0cm) FS (%) 32.5 %LVEF (%)61.3 (>50%) M-Mode DIMENSIONS Left Atrium (MM)3.00 (2.5-4.0cm)Aortic Root3.90 (2.2-3.7cm) Aortic Cusp Exc.1.80 (1.5-2.0cm) Aortic Valve AoV Peak Qpkqgpnf382.0cm/Alen Peak GR.5mmHg Mitral Valve MV E Mvmgxida11.0cm/sMV A Vnxlvrji34.9cm/sE/A ratio1.0 TDI Lateral E' Peak V6.92cm/sMedial E' Peak V6.53cm/sE/Lateral E'11.3 E/Medial E'11.9 Tricuspid Valve TR Peak [id number]/sRAP [id number] Peak Gr.26mmHg [id number] LEFT VENTRICLE The left ventricle is normal size. There is borderline concentric left ventricular hypertrophy. The left ventricular function is normal. The left ventricular ejection fraction is within the normal range. There is normal LV segmental wall motion. Transmitral Doppler flow pattern is Grade I-abnormal relaxation pattern. RIGHT VENTRICLE The right ventricle is normal size. There is normal right ventricular wall thickness. The right ventricular systolic function is normal. ATRIA The left atrium size is normal. The right atrium size is normal. AORTIC VALVE The aortic valve is normal in structure. No aortic regurgitation is present. There is no aortic valvular stenosis. MITRAL VALVE The mitral valve is mildly thickened. Mitral regurgitation is trace. TRICUSPID VALVE The tricuspid valve is normal in structure. There is mild tricuspid regurgitation. There is mild pulmonary hypertension. GREAT VESSELS The aortic root is normal in size. The IVC is normal in size and collapses >50% with inspiration. PERICARDIAL EFFUSION There is a trace loculated anterior pericardial effusion. <Conclusion> The left ventricle is normal size. There is borderline concentric left ventricular hypertrophy. The left ventricular function is normal. The left ventricular ejection fraction is within the normal range. There is normal LV segmental wall motion. Transmitral Doppler flow pattern is Grade I-abnormal relaxation pattern. There is mild tricuspid regurgitation. There is mild pulmonary hypertension.
--- NOTE | 2017-09-23 16:41 | CP.PCM.CON ---
History of Present Illness - History of Present Illness History of Present Illness: Mr. Dunn is an 82 year old man who was admitted due to evidence of left hemispheric symptoms. the patient had a recent event in May 2017 which has left him with some residual weakness on the right. This time he redeveloped the symptoms and his NIHSS was 7. He also developed hyponatremia during this admission. His symptoms however completely resolved and he did not require any thrombolytic or endovascular therapy. Mr. Dunn underwent an MRI brain as well as MRA of the brain and neck during this admission. These studies along with the initial head CT were reviewed by me. In my opinion, the patients has had no new infarcts. however there is a flow attenuation at the distal M1 which continues till the proximal M2 level. Thereafter further branches of the M2 segment for both anterior and posterior divisions are visualized. There is no acute infarction or hyperdensity of any branches on the initial CT. 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 Past Patient History - Past Social History Smoking Status: Never Smoked - NEUROLOGICAL HX Cerebrovascular Accident: Yes (R soided weakness) - MUSCULOSKELETAL/RHEUMATOLOGICAL Hx Falls: No - PSYCHIATRIC Hx Substance Use: No Meds Allergies/Adverse Reactions: Allergies Allergy/AdvReac Type Severity Reaction Status Date / Time No Known Allergies Allergy Verified 09/21/17 23:43 - Medications Medications: Current Medications Aspirin (Ecotrin) 81 mg PO DAILY [facility] Last Admin: 09/23/17 09:57 Dose: 81 mg Atorvastatin Calcium (Lipitor) 40 mg PO DIN [facility] Last Admin: 09/22/17 17:10 Dose: Not Given Clopidogrel Bisulfate (Plavix) 75 mg PO DAILY [facility] Last Admin: 09/23/17 09:57 Dose: 75 mg Donepezil HCl (Aricept) 5 mg PO DAILY [facility] Last Admin: 09/23/17 14:19 Dose: 5 mg Sodium Chloride (Sodium Chloride 0.9%) 1,000 mls @ 120 mls/hr IV .Q8H20M [facility] Last Admin: 09/23/17 14:19 Dose: 120 mls/hr Pantoprazole Sodium (Protonix Inj) 40 mg IVP DAILY [facility] Last Admin: 09/23/17 09:57 Dose: 40 mg Tamsulosin HCl (Flomax) 0.8 mg PO DAILY [facility] Last Admin: 09/23/17 14:19 Dose: 0.8 mg Results - Vital Signs Recent Vital Signs: Last Vital Signs Temp 97.6 F 09/23/17 12:00 Pulse 61 09/23/17 14:00 Resp 18 09/23/17 12:00 BP 128/66 09/23/17 12:00 Pulse Ox 96 09/23/17 12:00 - Labs Result Diagrams: 09/23/17 06:00 09/23/17 06:00 Labs: Laboratory Results - last 24 hr 09/22/17 09/22/17 09/22/17 12:50 12:54 17:30 WBC RBC Hgb Hct MCV MCH MCHC RDW Plt Count MPV Gran % Lymph % (Auto) Boyle % (Auto) Eos % (Auto) Baso % (Auto) Gran # Lymph # Boyle # Eos # Baso # Sodium 129 L Potassium 4.2 Chloride 98 Carbon Dioxide 23 Anion Gap 13 BUN 12 Creatinine 0.7 L Est GFR ( Amer) > 60 Est GFR (Non-Af Amer) > 60 POC Glucose (mg/dL) Random Glucose 104 Calcium 9.1 Total Bilirubin AST ALT Alkaline Phosphatase Troponin I Total Protein Albumin Globulin Albumin/Globulin Ratio Triglycerides Cholesterol LDL Cholesterol Direct HDL Cholesterol Vitamin B12 368 25-OH Vitamin D Total 49.7 09/22/17 09/22/17 09/23/17 17:30 20:10 06:00 WBC 3.9 L D RBC 3.98 Hgb 12.1 L Hct 35.6 L MCV 89.4 MCH 30.4 MCHC 34.0 RDW 13.1 Plt Count 194 MPV 9.8 Gran % 55.3 Lymph % (Auto) 32.7 Boyle % (Auto) 7.9 H Eos % (Auto) 3.6 Baso % (Auto) 0.5 Gran # 2.18 Lymph # 1.3 Boyle # 0.3 Eos # 0.1 Baso # 0.02 Sodium 129 L Potassium 4.3 Chloride 96 L Carbon Dioxide 24 Anion Gap 14 BUN 11 Creatinine 0.7 L Est GFR ( Amer) > 60 Est GFR (Non-Af Amer) > 60 POC Glucose (mg/dL) Random Glucose 107 Calcium 9.2 Total Bilirubin AST ALT Alkaline Phosphatase Troponin I < 0.01 Total Protein Albumin Globulin Albumin/Globulin Ratio Triglycerides Cholesterol LDL Cholesterol Direct HDL Cholesterol Vitamin B12 25-OH Vitamin D Total 09/23/17 09/23/17 09/23/17 06:00 07:15 12:23 WBC RBC Hgb Hct MCV MCH MCHC RDW Plt Count MPV Gran % Lymph % (Auto) Boyle % (Auto) Eos % (Auto) Baso % (Auto) Gran # Lymph # Boyle # Eos # Baso # Sodium 130 L Potassium 3.9 Chloride 100 Carbon Dioxide 24 Anion Gap 10 BUN 10 Creatinine 0.7 L Est GFR ( Amer) > 60 Est GFR (Non-Af Amer) > 60 POC Glucose (mg/dL) 68 197 H Random Glucose 74 Calcium 9.0 Total Bilirubin 0.6 AST 24 ALT 30 Alkaline Phosphatase 69 Troponin I Total Protein 6.1 Albumin 3.2 Globulin 2.9 Albumin/Globulin Ratio 1.1 Triglycerides 62 Cholesterol 89 L LDL Cholesterol Direct 33 HDL Cholesterol 38 Vitamin B12 25-OH Vitamin D Total - Imaging and Cardiology MRI - head Additional comment: My interpretations has been mentioned in the HPI CT scan - head Additional comment: my interpretation has been mentioned in HPI. 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 occlusive distal left MCA - stroke recrudescence is a possibility - vascular findings may be chronic occlusion which is well compensated or a critical stenosis Plan: 1. Will obtain CTA head and necl 2. Agree with dual antiplatelet therapy for now 3. If CTA confirms evidence of a complete occlusion patient will require a cardio-embolic work up in the absence of any other source for artery to artery embolus. Therefore will recommend placement of a Loop recorder with/without JOSÉ.
[2017-09-23] MEDS ORDERED: Iohexol 350 MG/100 ML VIAL ONE (17:39)
[2017-09-24] MEDS: Sodium Chloride 0.9% 1,000 ML IV SCH ×3 (01:26→15:48)
[2017-09-24 06:53] LABS: BASO # 0.01 K/mm3 (0.0-2.0); BASO % 0.2 % (0.0-3.0); EOS # 0.1 (0.0-0.7); EOS % 1.8 % (1.5-5.0); GRAN # 3.2 (1.4-6.5); HEMOGLOBIN 12.5 g/dL (14.0-18.0); LYMPH # 1.2 (1.2-3.4); LYMPH % 24.5 % (22.0-35.0); MEAN CELL VOLUME 88.6 fl (80.0-105.0); MEAN PLATELET VOLUME 9.7 fl (7.0-11.0); MONO # 0.4 (0.1-0.6); MONO % 8.5 % (1.0-6.0); RBC 4.03 10^6/uL (3.5-6.1); RED CELL DISTRIBUTION WIDTH 12.9 % (11.5-14.5); WHITE BLOOD COUNT 4.9 10^3/ul (4.5-11.0)
[2017-09-24 07:00] LABS: ALB/GLOB RATIO 1.2 (1.1-1.8); ALBUMIN 3.5 g/dL (3.0-4.8); ALT/SGPT 28 U/L (7-56); AST/SGOT 24 U/L (17-59); BLOOD UREA NITROGEN 8 mg/dL (7-21); CALCIUM 8.9 mg/dL (8.4-10.5); GFR AFRICAN-AMERICAN > 60; GFR NON-AFRICAN AMERICAN > 60
[2017-09-24] MEDS ORDERED: Potassium Chloride 20 mEq ER Tab PO STA (08:47)
[2017-09-24] MEDS ORDERED: Potassium Chloride 20 mEq ER Tab PO ONE (08:48)
[2017-09-24] MEDS ORDERED: Pantoprazole 40 mg EC Tab PO SCH (10:00)
--- NOTE | 2017-09-24 10:23 | CT ---
PROCEDURE: CT Angiography of the neck with contrast HISTORY: left MCA occlusion vs stenosis COMPARISON: None available. TECHNIQUE: Contiguous axial images of the neck were obtained from the level of the skull-base to the superior mediastinum in the arteriographic phase of enhancement. Coronal and sagittal reformats or also generated. IV contrast dose: 150 cc of Omni 350 Radiation Dose - DLP: 390 mGy-cm This CT exam was performed using one or more of the following dose reduction techniques: Automated exposure control, adjustment of the mA and/or kV according to patient size, and/or use of iterative reconstruction technique. FINDINGS: RIGHT CAROTID ARTERIES: Common Carotid Artery: Normal. Carotid Bifurcation: Calcified plaques with no stenosis Internal Carotid Artery:Normal. External Carotid Artery (proximal branches): Normal. LEFT CAROTID ARTERIES: Common Carotid Artery: Normal. Carotid Bifurcation: Calcified plaques with no stenosis Internal Carotid Artery:Normal. External Carotid Artery (proximal branches): Normal. VERTEBRAL ARTERIES: Right Vertebral Artery: Normal. Left Vertebral Artery: Normal. OTHER FINDINGS: None. IMPRESSION: No significant stenosis PROCEDURE: CT Angiography of the Brain. HISTORY: left MCA occlusion vs stenosis COMPARISON: None available. TECHNIQUE: CT angiography of the intracranial arteries was performed. Coronal and sagittal maximum intensity projection reformated images were generated. This CT exam was performed using one or more of the following dose reduction techniques: Automated exposure control, adjustment of the mA and/or kV according to patient size, and/or use of iterative reconstruction technique. FINDINGS: INTERNAL CEREBRAL ARTERIES: Unremarkable. The skull base, petrous, cavernous and supraclinoid segments are bilaterally widely patent. ANTERIOR CEREBRAL ARTERIES: Unremarkable. A1 and A2 segments are widely patent. Smaller distal branches unremarkable, as visualized. MIDDLE CEREBRAL ARTERIES: Unremarkable. M1 and M2 segments are widely patent. Perisylvian branches grossly symmetric. POSTERIOR CIRCULATION: Basilar Artery: Unremarkable. Distal Vertebral Arteries: Unremarkable. Posterior Cerebral Arteries: Unremarkable. Posterior Inferior Cerebellar Arteries: Unremarkable. ANEURYSM/ VASCULAR MALFORMATIONS: None. OTHER FINDINGS: None. IMPRESSION: Unremarkable CT Angiography of the Brain.
[2017-09-24 12:24] VITALS: O2SAT 98
[2017-09-24 13:00] VITALS: BP 134/72; RESP 18; TEMP 97.7
[2017-09-24 14:42] VITALS: PULSE 55
--- NOTE | 2017-09-24 18:04 | CP.PCM.DIS ---
<Lorena Wong - Last Filed: 09/24/17 17:52> Provider - Provider Date of Admission: 09/22/17 03:40 Attending physician: Rafia Nolan MD Primary care physician: Estrada Barrientos MD Time Spent in preparation of Discharge (in minutes): 55 Diagnosis - Discharge Diagnosis (1) Hyponatremia Status: Acute (2) TIA (transient ischemic attack) Status: Acute Priority: High Hospital Course - Lab Results Lab Results: Most Recent Lab Values WBC 4.9 10^3/ul (4.5-11.0) D 09/24/17 06:30 RBC 4.03 10^6/uL (3.5-6.1) 09/24/17 06:30 Hgb 12.5 g/dL (14.0-18.0) L 09/24/17 06:30 Hct 35.7 % (42.0-52.0) L 09/24/17 06:30 MCV 88.6 fl (80.0-105.0) 09/24/17 06:30 MCH 31.0 pg (25.0-35.0) 09/24/17 06:30 MCHC 35.0 g/dl (31.0-37.0) 09/24/17 06:30 RDW 12.9 % (11.5-14.5) 09/24/17 06:30 Plt Count 194 10^3/uL (120.0-450.0) 09/24/17 06:30 MPV 9.7 fl (7.0-11.0) 09/24/17 06:30 Gran % 65.0 % (50.0-68.0) 09/24/17 06:30 Lymph % (Auto) 24.5 % (22.0-35.0) 09/24/17 06:30 [place] % (Auto) 8.5 % (1.0-6.0) H 09/24/17 06:30 Eos % (Auto) 1.8 % (1.5-5.0) 09/24/17 06:30 Baso % (Auto) 0.2 % (0.0-3.0) 09/24/17 06:30 Gran # 3.20 (1.4-6.5) 09/24/17 06:30 Lymph # 1.2 (1.2-3.4) 09/24/17 06:30 [place] # 0.4 (0.1-0.6) 09/24/17 06:30 Eos # 0.1 (0.0-0.7) 09/24/17 06:30 Baso # 0.01 K/mm3 (0.0-2.0) 09/24/17 06:30 ESR 10 mm/hr (0.00-15.0) 09/22/17 13:00 PT 11.7 SECONDS (9.4-12.5) 09/22/17 05:05 INR 1.02 (0.93-1.08) 09/22/17 05:05 APTT 29.4 Seconds (25.1-36.5) 09/22/17 05:05 Sodium 131 mmol/L (132-148) L 09/24/17 06:30 Potassium 3.5 mmol/L (3.6-5.0) L 09/24/17 06:30 Chloride 98 mmol/L (98-107) 09/24/17 06:30 Carbon Dioxide 23 mmol/L (21-33) 09/24/17 06:30 Anion Gap 13 (10-20) 09/24/17 06:30 BUN 8 mg/dL (7-21) 09/24/17 06:30 Creatinine 0.6 mg/dl (0.8-1.5) L 09/24/17 06:30 Est GFR ( Amer) > 60 09/24/17 06:30 Est GFR (Non-Af Amer) > 60 09/24/17 06:30 POC Glucose (mg/dL) 97 mg/dL (65-110) 09/23/17 20:59 Random Glucose 88 mg/dL (70-110) 09/24/17 06:30 Hemoglobin A1c 5.8 % (4.2-6.5) 09/22/17 00:05 Serum Osmolality 264 mosm/kg (272-300) L 09/22/17 05:05 Calcium 8.9 mg/dL (8.4-10.5) 09/24/17 06:30 Phosphorus 3.5 mg/dL (2.5-4.5) 09/22/17 05:05 Magnesium 1.8 mg/dL (1.7-2.2) 09/22/17 05:05 Total Bilirubin 0.6 mg/dL (0.2-1.3) 09/24/17 06:30 AST 24 U/L (17-59) 09/24/17 06:30 ALT 28 U/L (7-56) 09/24/17 06:30 Alkaline Phosphatase 77 U/L (38-126) 09/24/17 06:30 Troponin I < 0.01 ng/mL 09/22/17 17:30 C-React Prot High Sens 0.53 mg/L (1.00-3.00) L 09/22/17 12:54 Total Protein 6.5 g/dL (5.8-8.3) 09/24/17 06:30 Albumin 3.5 g/dL (3.0-4.8) 09/24/17 06:30 Globulin 3.0 gm/dL 09/24/17 06:30 Albumin/Globulin Ratio 1.2 (1.1-1.8) 09/24/17 06:30 Triglycerides 62 mg/dL (35-160) 09/23/17 06:00 Cholesterol 89 mg/dL (130-200) L 09/23/17 06:00 LDL Cholesterol Direct 33 mg/dL (0-129) 09/23/17 06:00 HDL Cholesterol 38 mg/dL (29-60) 09/23/17 06:00 Vitamin B12 368 pg/mL (239-931) 09/22/17 12:50 25-OH Vitamin D Total 49.7 NG/ML (30.0-100.0) 09/22/17 12:54 TSH 3rd Generation 2.33 mIU/mL (0.46-4.68) 09/22/17 05:05 - Hospital Course Hospital Course: 82 yo M Patient is an 82 year old male past medical history significant for 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 The aphasia and weakness started and ended prior to admission, but he continued to have tremors in bilateral upper and lower extremities. He was also noted to be hyponatremic. Initial head CT was reported as concerning for acute/subacute infarct in left cerebral peduncle, followed by RAYNE brain, MRA neck and MRA head , which were remarkable for decreased flow in L MCA and paucity in distal MCA. Head CT and MR imaging were reeinterpreted by interventional neurologist Dr. Cruz who reported no signs of acute stroke. Patient was started on dual antiplatelet therapy, which had reportedly been recently discontinued by his gang vibrator operator. Dr. Cruz recommended CTA of the head and neck, which showed no stenotic lesions. Patient was advised to continue no the dual antiplatelet therapy and follow up with his PCP, gang vibrator operator, and Dr. Sue (neurologist) upon discharge. Today, patient reports no new weakness or numbness, or confusion. Daughter and grandaughter were at bedside providing translation. He did have some discomfort in his legs which made it difficult for him to sleep, which resolved spontaneously. He denies any chest pain, palpitations, headache, confusion, nausea, vomiting, diarrhea, abdominal pain, shortness of breath, fever, or chills. He was given prescriptions for all new medications, and instructions for follow up. All questions were answered to his and his family's satisfaction , and patient was discharged to home. Discharge Exam - Head Exam Head Exam: ATRAUMATIC, NORMOCEPHALIC - Eye Exam Eye Exam: EOMI, Normal appearance, PERRL - ENT Exam ENT Exam: Mucous Membranes Moist - Neck Exam Neck exam: Normal Inspection - Respiratory Exam Respiratory Exam: Clear to PA & Lateral, NORMAL BREATHING PATTERN, UNREMARKABLE - Cardiovascular Exam Cardiovascular Exam: RRR, +S1, +S2 - GI/Abdominal Exam GI & Abdominal Exam: Normal Bowel Sounds, Soft. absent: Tenderness - Extremities Exam Extremities exam: full ROM, normal inspection - Neurological Exam Neurological exam: Alert, CN II-XII Intact, Oriented x3 Additional comments: Aphasia, baseline Right sided weakness, baseline No tremor - Psychiatric Exam Psychiatric exam: Normal Affect, Normal Mood - Skin Skin Exam: Dry, Intact, Normal Color Discharge Plan - Discharge Medications Prescriptions: amLODIPine [Norvasc] 5 mg PO DAILY #30 tab Aspirin [Ecotrin] 81 mg PO DAILY #30 tabec - Follow Up Plan Condition: FAIR Disposition: HOME/ ROUTINE Instructions: Hyponatremia (DC), Hyponatremia (GEN) Additional Instructions: 1. Continue to take both Aspirin and Plavix daily 2. Continue to take all other medications as prescribed 3. Follow up with Dr. Sue within 2 weeks 4. Follow up with your primary care doctor within 1 week 5. Follow up with your gang vibrator operator within 2 weeks 6. For any new or worsening concerns contact your PCP immediately or return to the ER Referrals: Estrada Barrientos MD [Primary Care Provider] - Shad Sue MD [Staff Provider] - <Rafia Nolan - Last Filed: 09/25/17 16:46> Provider - Provider Date of Admission: 09/22/17 03:40 Attending physician: Rafia Nolan MD Primary care physician: Estrada Barrientos MD Hospital Course - Lab Results Lab Results: Most Recent Lab Values WBC 4.9 10^3/ul (4.5-11.0) D 09/24/17 06:30 RBC 4.03 10^6/uL (3.5-6.1) 09/24/17 06:30 Hgb 12.5 g/dL (14.0-18.0) L 09/24/17 06:30 Hct 35.7 % (42.0-52.0) L 09/24/17 06:30 MCV 88.6 fl (80.0-105.0) 09/24/17 06:30 MCH 31.0 pg (25.0-35.0) 09/24/17 06:30 MCHC 35.0 g/dl (31.0-37.0) 09/24/17 06:30 RDW 12.9 % (11.5-14.5) 09/24/17 06:30 Plt Count 194 10^3/uL (120.0-450.0) 09/24/17 06:30 MPV 9.7 fl (7.0-11.0) 09/24/17 06:30 Gran % 65.0 % (50.0-68.0) 09/24/17 06:30 Lymph % (Auto) 24.5 % (22.0-35.0) 09/24/17 06:30 [place] % (Auto) 8.5 % (1.0-6.0) H 09/24/17 06:30 Eos % (Auto) 1.8 % (1.5-5.0) 09/24/17 06:30 Baso % (Auto) 0.2 % (0.0-3.0) 09/24/17 06:30 Gran # 3.20 (1.4-6.5) 09/24/17 06:30 Lymph # 1.2 (1.2-3.4) 09/24/17 06:30 [place] # 0.4 (0.1-0.6) 09/24/17 06:30 Eos # 0.1 (0.0-0.7) 09/24/17 06:30 Baso # 0.01 K/mm3 (0.0-2.0) 09/24/17 06:30 ESR 10 mm/hr (0.00-15.0) 09/22/17 13:00 PT 11.7 SECONDS (9.4-12.5) 09/22/17 05:05 INR 1.02 (0.93-1.08) 09/22/17 05:05 APTT 29.4 Seconds (25.1-36.5) 09/22/17 05:05 Sodium 131 mmol/L (132-148) L 09/24/17 06:30 Potassium 3.5 mmol/L (3.6-5.0) L 09/24/17 06:30 Chloride 98 mmol/L (98-107) 09/24/17 06:30 Carbon Dioxide 23 mmol/L (21-33) 09/24/17 06:30 Anion Gap 13 (10-20) 09/24/17 06:30 BUN 8 mg/dL (7-21) 09/24/17 06:30 Creatinine 0.6 mg/dl (0.8-1.5) L 09/24/17 06:30 Est GFR ( Amer) > 60 09/24/17 06:30 Est GFR (Non-Af Amer) > 60 09/24/17 06:30 POC Glucose (mg/dL) 97 mg/dL (65-110) 09/23/17 20:59 Random Glucose 88 mg/dL (70-110) 09/24/17 06:30 Hemoglobin A1c 5.8 % (4.2-6.5) 09/22/17 00:05 Serum Osmolality 264 mosm/kg (272-300) L 09/22/17 05:05 Calcium 8.9 mg/dL (8.4-10.5) 09/24/17 06:30 Phosphorus 3.5 mg/dL (2.5-4.5) 09/22/17 05:05 Magnesium 1.8 mg/dL (1.7-2.2) 09/22/17 05:05 Total Bilirubin 0.6 mg/dL (0.2-1.3) 09/24/17 06:30 AST 24 U/L (17-59) 09/24/17 06:30 ALT 28 U/L (7-56) 09/24/17 06:30 Alkaline Phosphatase 77 U/L (38-126) 09/24/17 06:30 Troponin I < 0.01 ng/mL 09/22/17 17:30 C-React Prot High Sens 0.53 mg/L (1.00-3.00) L 09/22/17 12:54 Total Protein 6.5 g/dL (5.8-8.3) 09/24/17 06:30 Albumin 3.5 g/dL (3.0-4.8) 09/24/17 06:30 Globulin 3.0 gm/dL 09/24/17 06:30 Albumin/Globulin Ratio 1.2 (1.1-1.8) 09/24/17 06:30 Triglycerides 62 mg/dL (35-160) 09/23/17 06:00 Cholesterol 89 mg/dL (130-200) L 09/23/17 06:00 LDL Cholesterol Direct 33 mg/dL (0-129) 09/23/17 06:00 HDL Cholesterol 38 mg/dL (29-60) 09/23/17 06:00 Vitamin B12 368 pg/mL (239-931) 09/22/17 12:50 25-OH Vitamin D Total 49.7 NG/ML (30.0-100.0) 09/22/17 12:54 TSH 3rd Generation 2.33 mIU/mL (0.46-4.68) 09/22/17 05:05 Prothrombin Mut Interp see note 09/22/17 12:50 Prothrombin Gene Mutate see note 09/22/17 12:50 Prothromb Gene Review see note 09/22/17 12:50 Attending/Attestation - Attestation I have personally seen and examined this patient.: Yes I have fully participated in the care of the patient.: Yes I have reviewed all pertinent clinical information, including history, physical exam and plan: Yes Notes (Text): I have seen and examined the patient at bedside. 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 CT head revealed acute vs subacute infarct. MRI brain normal however MRA revealed Left MCA low signal. Neurologist and neuro intervention on board. He was started on dual antiplatelet regimen aspirin and plavix. Continue lipitor. Discussed with Dr Cruz who reported no signs of acute stroke. Hyponatremia is improving. Discussed case with pmd as well. Patient follows up with gang vibrator operator and has a loop recorder in place. Upon discharge patient will follow up with Dr Barrientos. Dr Rafia Nolan
--- NOTE | 2017-09-25 03:03 | CON ---
DATE: REASON FOR CONSULTATION: History of CVA, rule out recurrent CVA, also abnormal EKG. HISTORY OF PRESENT ILLNESS: The patient is an 82-year-old [place] male, who has a history of CVA, residual right hemiplegia and expressive aphasia. He presented from home with a chief complaint of aphasia and tremors in both upper and lower extremities. The patient sustained his previous stroke in May of last year. The patient was reported by his family members to have worsening of his aphasia and tremors of all extremities. No reported fever or chills. No reported chest pain or shortness of breath. SOCIAL HISTORY: Nonsmoker. Nondrinker. He lives with his family. MEDICATIONS: Aricept 5 mg once a day, aspirin 81 mg once a day, Flomax 0.4 mg once a day, Lipitor 40 mg once a day, Norvasc 5 mg once a day, Plavix 75 mg once a day, Protonix 40 mg p.o. once a day, normal saline at 120 mL an hour. REVIEW OF SYSTEMS: No recent fever or chills. No reported hypertension or ventricular tachycardia. No reported generalized seizures. PHYSICAL EXAMINATION: GENERAL: The patient is an elderly male, who does not appear to be in acute distress. VITAL SIGNS: Blood pressure 154/72, heart rate 63, temperature 97.7, and respirations 18. HEENT: Loss of right nasolabial fold. NECK: No JVD. CHEST: Clear . HEART: S1, S2 regular. ABDOMEN: Soft. EXTREMITIES: No edema. LABORATORY DATA: Today's hemoglobin and hematocrit are 12.5 and 35.7. White count and platelet count are within normal limit. SMA-7, sodium 131, potassium 3.5, chloride 98, CO2 of 23, glucose 88, BUN 8, and creatinine 0.6. INR is 1.02. PT and PTT are within normal limits. 1. Head CT scan without contrast, abnormal hypodensity within the left cerebellar peduncle which is asymmetric and extends into the alfredo. This is concerning for acute or subacute ischemic changes/infarct. An MRI of the brain is recommended. 2. Hypodense foci of small vessel disease and lacunar infarcts are visualized within the left cerebral white matter. The lacunar infarcts appear chronic. 3. Brain MRI, no definite acute cerebral brain infarct is appreciated at this time with age-related neurodegenerative changes. 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 This is a chronic finding, not specifically postischemic, though diagnosis discussed earlier. 4. Head MRA with decreased flow signal within the left mid cerebral artery consistent with slow flow or occlusion. 5. Neck MRA, no definite significant stenosis at the patient's visualized bilateral segments of the neck. 6. Head and neck CT angio, unremarkable CT angio of the brain. 7. Echocardiac study, normal left ventricular size, just borderline concentric LVH, normal ejection fraction, and normal segmental wall motion, grade 1 abnormal relaxation pattern, mild pulmonary hypertension. 8. EKG revealed sinus rhythm, right ventricular conduction delay. ASSESSMENT: 1. History of cerebrovascular accident noted with residual right hemiplegia and expressive aphasia. No recurrence of another acute cerebrovascular accident. 2. Hypokalemia. 3. Hypertension. 4. Hyponatremia. CONDITIONS: The patient did receive K-Dur 40 mEq p.o. today. Continue normal saline at 120 mL an hour. Continue Plavix at 75 mg once a day, Norvasc at 5 mg once a day, Lipitor at 40 mg once a day, aspirin 81 mg once a day. No further cardiac workup is indicated. Hector Jaimes MD
== END 2017-09-24 18:22 | disposition home or self-care (01) | DRG 641 ==
LOC: ED 23:27 → ERH 09-22 03:40 → 3RSO 09-22 20:15
PROVIDERS: ADMIT Hospitalist; ATTEND Hospitalist
DX: E87.1 Hypo-osmolality and hyponatremia (principal); G45.9 Transient cerebral ischemic attack, unspecified; I69.351 Hemiplegia and hemiparesis following cerebral infarction affecting right dominant side; F03.90 Unspecified dementia, unspecified severity, without behavioral disturbance, psychotic disturbance, mood disturbance, and anxiety; I69.320 Aphasia following cerebral infarction; R29.707 NIHSS score 7; E87.6 Hypokalemia; I10 Essential (primary) hypertension; N40.0 Benign prostatic hyperplasia without lower urinary tract symptoms; R25.1 Tremor, unspecified; Z79.02 Long term (current) use of antithrombotics/antiplatelets

== ENCOUNTER 2017-11-24 20:02 | Emergency (ER) | payer MEDICARE, MEDICAID ==
[2017-11-24 20:03] VITALS: BMI 19.5
[2017-11-24 20:21] VITALS: RESP 18; O2SAT 98
--- NOTE | 2017-11-24 20:32 | ED PDOC ---
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 Following the first stroke, patient had residual right sided weakness. After the second stroke, patient has been nonverbal, restless, shaking a lot, and does not sleep well. Today, the family just wants something to at least relax or calm down the patient. Patient denies any fever, chills, chest pain, shortness of breath, nausea, vomiting, diarrhea, urinary symptoms, back pain, neck pain, headache, dizziness, or any other complaints. Time/Duration: > month Symptom Onset: Gradual Symptom Course: Unchanged Context: Home Past Medical History - Provider Review Nursing Documentation Reviewed: Yes - Neurological HX Cerebrovascular Accident: Yes (R sided weakness/ non verbal) - Musculoskeletal/Rheumatological Hx Falls: Yes - Psychiatric Hx Substance Use: No - Anesthesia Hx Anesthesia: No Family/Social History - Physician Review Nursing Documentation Reviewed: Yes Family/Social History: Unknown Family HX Smoking Status: Never Smoked Hx Alcohol Use: No Hx Substance Use: No Allergies/Home Meds Allergies/Adverse Reactions: Allergies No Known Allergies Allergy (Verified 09/21/17 23:43) Home Medications: Home Meds Medication Instructions Recorded Confirmed Atorvastatin [Lipitor] 40 mg PO DAILY 09/23/17 11/24/17 Clopidogrel [Plavix] 75 mg PO DAILY 09/23/17 11/24/17 Donepezil [Aricept] 5 mg PO DAILY 09/23/17 11/24/17 Lactulose 20 gm PO TID PRN 09/23/17 11/24/17 Pantoprazole [Protonix EC Tab] 40 mg PO DAILY 09/23/17 11/24/17 Tamsulosin [Flomax] 0.8 mg PO DAILY 09/23/17 11/24/17 Review of Systems - Physician Review All systems were reviewed & negative as marked: Yes - Review of Systems Constitutional: absent: Fevers, Night Sweats Respiratory: absent: SOB Cardiovascular: absent: Chest Pain Gastrointestinal: absent: Diarrhea, Nausea, Vomiting Genitourinary Male: absent: Dysuria Musculoskeletal: absent: Back Pain, Neck Pain Neurological: Other (uncontrollable tremors). absent: Headache, Dizziness Physical Exam Vital Signs Reviewed: Yes Vital Signs Temp Pulse Resp BP Pulse Ox 11/24/17 20:21 97.4 F L 70 18 158/68 H 98 Temperature: Hypothermic Blood Pressure: Hypertensive Pulse: Regular Respiratory Rate: Normal Appearance: Positive for: Well-Appearing, Non-Toxic, Comfortable Pain Distress: None Mental Status: Positive for: Alert and Oriented X 3 - Systems Exam Head: Present: Atraumatic, Normocephalic Pupils: Present: PERRL Extroacular Muscles: Present: EOMI Conjunctiva: Present: Normal Mouth: Present: Moist Mucous Membranes Neck: Present: Normal Range of Motion Respiratory/Chest: Present: Clear to Auscultation, Good Air Exchange. No: Respiratory Distress, Accessory Muscle Use Cardiovascular: Present: Regular Rate and Rhythm, Normal S1, S2. No: Murmurs Abdomen: Present: Normal Bowel Sounds. No: Tenderness, Distention, Peritoneal Signs Back: Present: Normal Inspection Upper Extremity: Present: Normal Inspection. No: Cyanosis, Edema Lower Extremity: Present: Normal Inspection. No: Edema Neurological: Present: GCS=15, CN II-XII Intact, Other (uncontrollable tremors) Skin: Present: Warm, Dry, Normal Color. No: Rashes Psychiatric: Present: Alert, Oriented x 3, Normal Insight, Normal Concentration Medical Decision Making ED Course and Treatment: 11/24/17 20:26 Impression: 82 year old male with a history of CVA presents to the Emergency department due to uncontrollable tremors. Plan: -- Chest xray -- EKG -- Urinalysis -- Labs -- Reassess and disposition Prior Visits: Notes and results from previous visits were reviewed. Patient was last seen in the emergency department on 09/21/17, was diagnosed with hyponatremia, and was hospitalized. Progress Notes: 11/24/17 20:26 Family understands that the Emergency department cannot provide a neurologist at this time as this is not an emergent situation. Family is requesting some type of medication that may calm the patient down or help him sleep so that he will feel better. 11/24/17 22:15 CT Head shows: Brain: [id number]-[id number] atrophy. No intracranial hemorrhage. No mass. Several scattered foci of decreased attenuation within periventricular/subcortical white matter. Probable chronic infarct within deep white matter of left frontal parietal occipital regions. Probable chronic lacunar infarct within brainstem/cerebral peduncle. No definite edema. Ventricles: No hydrocephalus. Bones/joints: No acute fracture. Soft tissues: Unremarkable. Vasculature: Minimal atherosclerotic disease of intracranial arteries. Sinuses: Scattered minimal mucosal thickening. Mastoid air cells: No mastoid effusion. Orbits: Unremarkable as visualized. IMPRESSION: 1. Nonspecific white matter changes. Acute infarction may be CT occult within first 24 hours. If a focal deficit persists, consider followup CT or MRI for further evaluation. 2. Incidental/non-acute findings are described above. - Lab Interpretations Lab Results: 11/24/17 20:50 11/24/17 20:50 Lab Results 11/24/17 20:50: Sodium 134, Potassium 4.6, Chloride 100, Carbon Dioxide 27, Anion Gap 12, BUN 18, Creatinine 0.9, Est GFR ( Amer) > 60, Est GFR (Non- Af Amer) > 60, Random Glucose 110, Calcium 9.2, Total Bilirubin 0.4, AST 23, ALT 24, Alkaline Phosphatase 69, Lactate Dehydrogenase 325 L, Total Creatine Kinase 66, Troponin I < 0.01, NT-Pro-B Natriuret Pep 109, Total Protein 6.9, Albumin 3.9, Globulin 2.9, Albumin/Globulin Ratio 1.3 11/24/17 20:50: PT 11.9, INR 1.04 11/24/17 20:50: WBC 5.3, RBC 3.95, Hgb 12.3 L, Hct 35.8 L, MCV 90.6, MCH 31.1, MCHC 34.4, RDW 13.3, Plt Count 232, MPV 9.8, Gran % 63.7, Lymph % (Auto) 25.6, Bay % (Auto) 7.8 H, Eos % (Auto) 2.5, Baso % (Auto) 0.4, Gran # 3.36, Lymph # ( Auto) 1.4, Bay # (Auto) 0.4, Eos # (Auto) 0.1, Baso # (Auto) 0.02 I have reviewed the lab results: Yes - RAD Interpretation Radiology Orders: 11/24/17 20:35 CHEST PORTABLE [RAD] Stat 11/24/17 20:42 HEAD W/O CONTRAST [CT] Stat Principal Embedded Software Engineer: Radiologist - Medication Orders Current Medication Orders: Discontinued Medications Lorazepam (Ativan) 0.5 mg PO ONCE ONE PRN Reason: Protocol Stop: 11/24/17 20:43 - Scribe Statement The provider has reviewed the documentation as recorded by the Claudia Spence Provider Scribe Attestation: All medical record entries made by the Scribe were at my direction and personally dictated by me. I have reviewed the chart and agree that the record accurately reflects my personal performance of the history, physical exam, medical decision making, and the department course for this patient. I have also personally directed, reviewed, and agree with the discharge instructions and disposition. Disposition/Present on Arrival - Present on Arrival Any Indicators Present on Arrival: No History of DVT/PE: No History of Uncontrolled Diabetes: No Urinary Catheter: No History of Decub. Ulcer: No History Surgical Site Infection Following: None - Disposition Have Diagnosis and Disposition been Completed?: Yes Diagnosis: Essential tremor, Insomnia, Anxiety Disposition: HOME/ ROUTINE Disposition Time: 23:00 Patient Plan: Discharge Patient Problems: Current Active Problems Problem Status Onset Essential tremor Acute Insomnia Acute Anxiety Acute Condition: GOOD Additional Instructions: Mr Dunn- All of your testing is normal or at baseline. You need to see the neurologist for something for the tremor and/or the insomnia. Follow up with your doctors and make sure you actually see the neurologist as already planned. Take all of your medicines as prescribed. Return to us if worse or new symptoms. Von- Dr. Victorino Encarnacion Referrals: Estrada Barrientos MD [Primary Care Provider] - Follow up with primary Forms: [employer] ([place])
[2017-11-24 21:25] LABS: ALB/GLOB RATIO 1.3 (1.1-1.8); ALBUMIN 3.9 g/dL (3.0-4.8); ALT/SGPT 24 U/L (7-56); AST/SGOT 23 U/L (17-59); BASO # 0.02 K/mm3 (0.0-2.0); BASO % 0.4 % (0.0-3.0); BLOOD UREA NITROGEN 18 mg/dL (7-21); CALCIUM 9.2 mg/dL (8.4-10.5); EOS # 0.1 (0.0-0.7); EOS % 2.5 % (1.5-5.0); GFR AFRICAN-AMERICAN > 60; GFR NON-AFRICAN AMERICAN > 60; GRAN # 3.36 (1.4-6.5); GRAN % 63.7 % (50.0-68.0); HEMOGLOBIN 12.3 g/dL (14.0-18.0); LYMPH # 1.4 (1.2-3.4); LYMPH % 25.6 % (22.0-35.0); MEAN CELL VOLUME 90.6 fl (80.0-105.0); MEAN CORPUSCULAR HEMOGLOBIN 31.1 pg (25.0-35.0); MEAN CORPUSCULAR HGB CONC 34.4 g/dl (31.0-37.0); MEAN PLATELET VOLUME 9.8 fl (7.0-11.0); MONO # 0.4 (0.1-0.6); MONO % 7.8 % (1.0-6.0); RBC 3.95 10^6/uL (3.5-6.1); RED CELL DISTRIBUTION WIDTH 13.3 % (11.5-14.5); WHITE BLOOD COUNT 5.3 10^3/ul (4.5-11.0)
[2017-11-24 21:36] LABS: B-TYPE NATRIURETIC PEPTIDE 109 pg/mL (0-450); TROPONIN I < 0.01 ng/mL
[2017-11-24 21:39] LABS: INR 1.04 (0.93-1.08); PROTHROMBIN TIME 11.9 SECONDS (9.4-12.5)
--- NOTE | 2017-11-24 22:11 | CT ---
EXAM: CT Head Without Intravenous Contrast CLINICAL HISTORY: 82 years old, male; Signs and symptoms; Weakness, extremity; Bilateral; Additional info: Generalized weakness //constant shaking TECHNIQUE: Axial computed tomography images of the head/brain without intravenous contrast. All CT scans at this facility use one or more dose reduction techniques, viz.: automated exposure control; ma/kV adjustment per patient size (including targeted exams where dose is matched to indication; i.e. head); or iterative reconstruction technique. Coronal and sagittal reformatted images were created and reviewed. COMPARISON: 09/21/2017 FINDINGS: Brain: [id number]-[id number] atrophy. No intracranial hemorrhage. No mass. Several scattered foci of decreased attenuation within periventricular/subcortical white matter. Probable chronic infarct within deep white matter of left frontal parietal occipital regions. Probable chronic lacunar infarct within brainstem/cerebral peduncle. No definite edema. Ventricles: No hydrocephalus. Bones/joints: No acute fracture. Soft tissues: Unremarkable. Vasculature: Minimal atherosclerotic disease of intracranial arteries. Sinuses: Scattered minimal mucosal thickening. Mastoid air cells: No mastoid effusion. Orbits: Unremarkable as visualized. IMPRESSION: 1. Nonspecific white matter changes. Acute infarction may be CT occult within first 24 hours. If a focal deficit persists, consider followup CT or MRI for further evaluation. 2. Incidental/non-acute findings are described above.
[2017-11-24 22:56] LABS: PH,URINE 7.5 (4.7-8.0); URINE BILIRUBIN NEGATIVE (NEGATIVE); URINE BLOOD TRACE-INTACT (NEGATIVE); URINE GLUCOSE (UA) NEGATIVE (NEGATIVE); URINE LEUKOCYTE ESTERASE NEGATIVE Leu/uL (NEGATIVE); URINE PROTEIN NEGATIVE mg/dL (<30 mg/dL); URINE UROBILINOGEN 0.2 E.U./dL (<1 E.U./dL)
[2017-11-24 23:10] LABS: URINE APPEARANCE CLEAR (CLEAR); URINE COLOR YELLOW (YELLOW)
[2017-11-24 23:23] LABS: URINE EPITHELIAL CELLS 0 - 2 /hpf (0-5); URINE RBC 0 - 2 /hpf (0-2); URINE WBC 0 - 2 /hpf (0-6)
[2017-11-25 02:16] VITALS: BP 146/72; PULSE 72; TEMP 97.6
--- NOTE | 2017-11-25 08:43 | RAD ---
HISTORY: Generalized Weakness COMPARISON: 09/21/2017 FINDINGS: LUNGS: No active pulmonary disease. PLEURA: No significant pleural effusion identified, no pneumothorax apparent. CARDIOVASCULAR: The heart is normal in size. There is mild aortic tortuosity. There is mild vascular congestion OSSEOUS STRUCTURES: No significant abnormalities. VISUALIZED UPPER ABDOMEN: Normal. OTHER FINDINGS: None. IMPRESSION: Mild vascular congestion
== END 2017-11-24 23:40 | disposition home or self-care (01) ==
LOC: ED 20:02
DX: G25.0 Essential tremor (principal); G47.00 Insomnia, unspecified; F41.9 Anxiety disorder, unspecified; I25.2 Old myocardial infarction; I10 Essential (primary) hypertension; I69.951 Hemiplegia and hemiparesis following unspecified cerebrovascular disease affecting right dominant side